=== PATIENT | female | born 1975 ===

== ENCOUNTER 2020-07-06 10:32 | Outpatient (REF) | payer OTHER, SELFPAY ==
[2020-07-06 13:44] LABS: MANUAL DIFF FLAG NO
[2020-07-06 13:55] LABS: Basophils Percent Auto 0.6 % (0-2); Eosinophils Absolute Auto 0.2 X10*3/uL (0.0-0.4); Eosinophils Percent Auto 2.6 % (0-4); Hematocrit 37.7 % (37-47); Hemoglobin 11.9 g/dl (12.0-16.0); Imm Gran Abs Auto 0.02 X10*3/uL (0.00-0.03); Imm Gran Pct Auto 0.3 % (0.0-0.4); Lymphocytes Absolute Auto 1.7 X10*3/uL (1.2-4.9); Lymphocytes Percent Auto 27.6 % (20-40); Mean Corpuscular HGB Conc 31.6 g/dl (31.0-35.0); Mean Corpuscular Hemoglobin 28.5 pg (27.0-33.0); Mean Corpuscular Volume 90.4 fL (80-98); Mean Platelet Volume 11.1 fL (9.4-12.3); Monocytes Absolute Auto 0.6 X10*3/uL (0.1-1.2); Monocytes Percent Auto 9.2 % (2-11); Neutrophils Absolute Auto 3.7 X10*3/uL (2.0-8.3); Neutrophils Percent Auto 59.7 % (45-73); Platelet Count 291 X10*3/uL (160-400); Red Blood Count 4.17 X10*6/uL (4.20-5.50); Red Cell Distribution Width 12.5 % (11.0-16.0); White Blood Count 6.2 X10*3/uL (4.8-10.8)
[2020-07-06 14:35] LABS: Alanine Aminotransferase 12 U/L (0-31); Albumin Level 4.2 g/dL (3.5-5.0); Alkaline Phosphatase 75 U/L (39-117); Anion Gap 11 (12-20); Aspartate Amino Transferase 14 U/L (5-31); Bilirubin Total 0.8 mg/dL (0.0-1.0); Blood Urea Nitrogen 15 mg/dL (9-16); Calcium 8.8 mg/dL (8.4-10.2); Carbon Dioxide 27 mmol/L (22-29); Chloride 104 mmol/L (96-108); Cholesterol 223 mg/dL; Estimated Glomerular Filt Rate > 60; Glucose Random 89 mg/dL (60-115); HDL Cholesterol 40 mg/dL; LDL Cholesterol Calculated 147 mg/dl; Potassium 4.3 mmol/l (3.3-5.1); Sodium 138 mmol/L (135-145); Total Protein 7.4 g/dL (6.5-8.0); Triglycerides 183 mg/dL
[2020-07-06 14:56] LABS: Thyroid Stimulating Hormone 0.48 mIU/mL (0.32-4.0)
== END 2020-07-06 10:33 | disposition home or self-care (01) ==
LOC: HO.10HDL 10:32
PROVIDERS: Visit Provider Internal Medicine Endocrinology, Diabetes & Metabolism
DX: I10 Essential (primary) hypertension (principal); E03.9 Hypothyroidism, unspecified
CPT/HCPCS: 36415; 80053; 80061; 84439; 84443; 85025

== ENCOUNTER → 2020-08-10 14:47 | Outpatient (BNVA) | payer OTHER, SELFPAY | PROVIDERS: PCP Internal Medicine; Visit Provider Internal Medicine Endocrinology, Diabetes & Metabolism | DX: Z76.89 Persons encountering health services in other specified circumstances (principal) ==

== ENCOUNTER 2020-09-04 14:49 | Outpatient (REF) | payer OTHER, SELFPAY ==
--- NOTE | 2020-09-04 14:52 | MM_ITS ---
EXAMINATION: MM SCREENING DIGITAL BREAST TOMOSYNTHESIS, BILATERAL CLINICAL INFORMATION: Screening. Asymptomatic. The lifetime risk of breast cancer based on the Tyrer-Cuzick Model is 14%. COMPARISON: Mammography: 03/03/2019, 11/10/2017, 09/03/2016 TECHNIQUE: Digital breast tomosynthesis is performed in both the craniocaudal and mediolateral oblique views along with computer-aided detection (CAD). Synthesized 2D images are generated from the tomosynthesis. FINDINGS: There are scattered areas of fibroglandular density (ACR BI-RADS breast composition Category b). There are no significant masses, abnormal calcifications, or other abnormalities. The axilla and skin contours are unremarkable. No significant changes. MM/MM tomosynthesis screening BI IMPRESSION: No mammographic evidence of malignancy. ASSESSMENT: BI-RADS 1: Negative RECOMMENDATION: Routine annual mammography screening. This patient's information was entered into a reminder system with a target due date for their next mammogram.
== END 2020-09-04 14:50 | disposition home or self-care (01) ==
LOC: HO.MAMMO 14:49
PROVIDERS: Visit Provider Internal Medicine
DX: Z12.31 Encounter for screening mammogram for malignant neoplasm of breast (principal)
CPT/HCPCS: 77063; 77067

== ENCOUNTER 2021-02-11 07:34 | Outpatient (REF) | payer OTHER, SELFPAY ==
[2021-02-11 11:01] LABS: Free T4 (Free Thyroxine) 0.95 ng/dL (0.71-1.85); Thyroid Stimulating Hormone 3.11 uIU/mL (0.32-4.0)
== END 2021-02-11 07:35 | disposition home or self-care (01) ==
LOC: HO.10HDL 07:34
PROVIDERS: Visit Provider Internal Medicine Endocrinology, Diabetes & Metabolism
DX: E55.9 Vitamin D deficiency, unspecified (principal)
CPT/HCPCS: 36415; 84439; 84443

== ENCOUNTER → 2021-02-12 15:38 | Outpatient (BNVA) | payer OTHER, SELFPAY | PROVIDERS: PCP Internal Medicine; Visit Provider Internal Medicine Endocrinology, Diabetes & Metabolism ==

== ENCOUNTER 2021-04-30 10:16 | Outpatient (REF) | payer OTHER, SELFPAY ==
[2021-04-30 13:12] LABS: MANUAL DIFF FLAG NO
[2021-04-30 13:17] LABS: Basophils Percent Auto 0.7 % (0-2); Eosinophils Absolute Auto 0.1 X10*3/uL (0.0-0.4); Eosinophils Percent Auto 2.6 % (0-4); Hematocrit 38.7 % (37-47); Hemoglobin 12.2 g/dl (12.0-16.0); Imm Gran Abs Auto 0.02 X10*3/uL (0.00-0.03); Imm Gran Pct Auto 0.4 % (0.0-0.4); Lymphocytes Absolute Auto 1.5 X10*3/uL (1.2-4.9); Lymphocytes Percent Auto 28.7 % (20-40); Mean Corpuscular HGB Conc 31.5 g/dl (31.0-35.0); Mean Corpuscular Hemoglobin 28.4 pg (27.0-33.0); Mean Corpuscular Volume 90.2 fL (80-98); Monocytes Absolute Auto 0.4 X10*3/uL (0.1-1.2); Monocytes Percent Auto 7.7 % (2-11); Neutrophils Absolute Auto 3.2 X10*3/uL (2.0-8.3); Neutrophils Percent Auto 59.9 % (45-73); Platelet Count 272 X10*3/uL (160-400); Red Blood Count 4.29 X10*6/uL (4.20-5.50); Red Cell Distribution Width 12.7 % (11.0-16.0); White Blood Count 5.3 X10*3/uL (4.8-10.8)
[2021-04-30 13:34] LABS: Alanine Aminotransferase 11 U/L (0-31); Alkaline Phosphatase 76 U/L (39-117); Anion Gap 12 (12-20); Aspartate Amino Transferase 13 U/L (5-31); Bilirubin Total 0.3 mg/dL (0.0-1.0); Blood Urea Nitrogen 16 mg/dL (9-16); Calcium 9.2 mg/dL (8.4-10.2); Carbon Dioxide 25 mmol/L (22-29); Chloride 105 mmol/L (96-108); Estimated Glomerular Filt Rate > 60; Glucose Random 97 mg/dL (60-115); Potassium 4.4 mmol/L (3.3-5.1); Sodium 138 mmol/L (135-145); Total Protein 7.3 g/dL (6.5-8.0)
[2021-04-30 13:51] LABS: Thyroid Stimulating Hormone 3.64 uIU/mL (0.32-4.0)
== END 2021-04-30 10:17 | disposition home or self-care (01) ==
LOC: HO.10HDL 10:16
PROVIDERS: Physician Assistant; Visit Provider Internal Medicine Endocrinology, Diabetes & Metabolism
DX: I49.3 Ventricular premature depolarization (principal); E55.9 Vitamin D deficiency, unspecified; E06.3 Autoimmune thyroiditis; E03.8 Other specified hypothyroidism
CPT/HCPCS: 36415; 80053; 83735; 85025

== ENCOUNTER → 2021-05-16 12:56 | Outpatient (BNVA) | payer SELFPAY | DX: Z20.822 Contact with and (suspected) exposure to COVID-19 (principal) | CPT/HCPCS: 36415; 87635 ==

== ENCOUNTER → 2021-05-20 10:21 | Outpatient (REF) | payer OTHER, SELFPAY ==
--- NOTE | 2021-05-20 10:30 | CA_ITS ---
Transthoracic Echocardiogram Patient (Last, First, Middle): Judith Dominguez, Gender: Female Date of : 1975 Age: 45 Procedure Date: 05/20/2021 Procedure Type: Transthoracic Echocardiogram Location: OP Height: 154.94 cm Weight: 67.13 kg BSA: 1.66 m2 Heart Rate: bpm BP: 118 / 80 mmHg Machine Molder: MELINDA Referring MD: Courtney RESENDIZ Judge Clerk: Shan Waggoner MD Symptoms: PVC'S Study Quality: Fair ECG Rhythm: Sinus Conclusions: - 1. Low normal LV systolic function with LVEF of 50-55% 2. Mild aortic regurgitation 3. Normal RV systolic pressure 4. No gross pericardial effusion Findings Left Ventricle Normal left ventricular cavity size. There is normal left ventricular wall thickness. The left ventricular systolic function is low normal. The visually estimated ejection fraction is between 50-55%. Spectral Doppler is indicative of a normal filling pattern. Right Ventricle Normal right ventricular cavity size and systolic function. Atria The left atrium is normal in size. Interatrial shunt cannot be excluded. The right atrium is normal in size. Aortic Valve Normal aortic valve structure and function. There is no aortic valve stenosis. There is mild aortic valve regurgitation. Mitral Valve Normal mitral valve structure and function. There is trace mitral valve regurgitation. There is no mitral valve stenosis. Pulmonic Valve The pulmonic valve was not well visualized. Tricuspid Valve Likely normal tricuspid valve structure and function. There is trace tricuspid valve regurgitation. The right ventricular systolic pressure is normal. The right ventricular systolic pressure is 21 mmHg. Normal right atrial pressure. There is no evidence of pulmonary hypertension. Great Vessels All visible segments of the aorta are normal in size. The pulmonary artery was not well visualized. Venous The inferior vena cava is normal in size and collapses greater than 50% with inspiration. Pericardium/Pleural There is no evidence of pericardial effusion. Prior Study Comparison No significant change compared to prior study dated: 09/28/2018. Measurements 2D Linear Measurements IVSd: 0.96 0.6-0.9/0.6-1.0 cm LVIDd: 5.55 3.9-5.3/4.2-5.9 cm LVIDd Index: 3.34 2.4-3.2/2.2-3.1 cm/m2 LVIDs: 4.07 2.0-3.6 cm LVPWd: 0.83 0.7-1.1 cm Ao Root: 3.00 2.1-3.5 cm LA Diam: 3.60 2.7-3.8/3.0-4.0 cm LAIDs Index: 2.17 1.5-2.3 cm/m2 LV Mass: 233.47 67-162/88-224 g LV Mass Index: 140.65 43-95/49-115 g/m2 LVOT Diam: 2.30 3.0+(-)1.3 cm 2D Systolic Function EF 4C: 54.60 >55% EF 2C: 42.90 >55% EF BiP: 50.50 >55% Mitral Valve MV Pk E: 0.70 MV PK A: 0.52 MV Decel Time: 230.00 E/A: 1.30 E'Lateral: 9.46 E'Medial: 4.79 E/E' Med: 14.60 E/E' Lat: 7.40 PHT: 68.00 MVA PHT: 3.24 Decel Burleigh: 3.03 Aortic Valve AoV Pk Miguel: 1.52 AoV Pk Grad: 9.00 AI Pk Miguel: 3.50 AI Burleigh: 1.55 LVOT LVOT Pk Miguel: 0.98 LVOT Mn Miguel: 0.60 LVOT VTI: 0.22 LVOT Pk Grad: 4.00 LVOT Mn Grad: 2.00 LVOT Diam: 2.30 LVOT Area: 4.15 Diastolic Function MV Pk E: 0.70 MV Pk A: 0.52 E/A: 1.30 E'Medial: 4.79 E/E' Med: 14.60 E' Laterial: 9.46 E/E' Lat: 7.40 Right Ventricle TAPSE (mm): 2.30 Tricuspid Valve TR Pk Miguel: 2.10 TR Pk Grad: 18.00 RA Press: 3.00 RVSP: 21.00 Great Vessels Aorta Ao Root-2D: 3.00 2.0-3.7 cm Ao Asc: 3.30 2.1-3.4 cm Updated in Other Vendor System with Status of Final Shan Waggoner MD electronically signed on 05/21/2021 8:45:15 AM with status of Final
--- NOTE | 2021-05-20 11:30 | ECG_ITS ---
Hook-up date: 2021-05-20 12:01:00 Duration: 24:50:00 Test Indications: PVC'S Medications: 80075 QRS complexes 206 Ventricular ectopics which represent <1 % of total QRS comp. 7 Supraventricular ectopics which represent <1 % of total QRS comp. * Paced QRS complexs which represent % of total QRS comp. VENTRICULAR ECTOPY 206 Isolated 0 Bigeminal Cycles 0 Couplets 0 Runs 0 Beats in Runs * Beats LONGEST at * BPM at :: -- * Beats FASTEST at * BPM at :: -- SUPRAVENTRICULAR ECTOPY 7 Isolated 0 Couplets 0 Runs 0 Beats in Runs * Beats LONGEST at * BPM at :: -- * Beats FASTEST at * BPM at :: -- HEART RATES 46 MIN at 05:45:18 2021-05-21 63 AVG 105 MAX at 05:39:15 2021-05-21 LONGEST RR 1.5040 secs at 05:45:13 2021-05-21 S-T LEVELS Channel 1 - 128 mm at 12:01:00 2021-05-20 - 128 mm at 12:01:00 2021-05-20 Channel 2 - 128 mm at 12:01:00 2021-05-20 - 128 mm at 12:01:00 2021-05-20 Channel 3 - 128 mm at 03:12:01 -- - 128 mm at 03:12:01 Underlying rhythm is sinus; Average ventricular rate 63/min; range 46-105/min; Rare PVCs and very rare PACs; No sustained arrhythmias; No patient events documented. Referred By: Courtney Parker Overread By: JEAN EMMANUEL
== END ==
LOC: HO.CARD 10:21
PROVIDERS: Visit Provider Physician Assistant
DX: I49.3 Ventricular premature depolarization (principal)
CPT/HCPCS: 93225; 93226; 93306

== ENCOUNTER 2021-10-01 08:50 | Outpatient (REF) | payer OTHER, SELFPAY ==
--- NOTE | ~2021-10-01 | MM_ITS ---
EXAMINATION: MM SCREENING DIGITAL BREAST TOMOSYNTHESIS, BILATERAL CLINICAL INFORMATION: Screening. Asymptomatic. The lifetime risk of breast cancer based on the Tyrer-Cuzick Model is 9%. COMPARISON: Mammography: 09/04/2020, 03/03/2019, 11/10/2017 TECHNIQUE: Digital breast tomosynthesis is performed in both the craniocaudal and mediolateral oblique views along with computer-aided detection (CAD). Synthesized 2D images are generated from the tomosynthesis. FINDINGS: There are scattered areas of fibroglandular density (ACR BI-RADS breast composition Category b). There are no significant masses, abnormal calcifications, or other abnormalities. MM/MM tomosynthesis screening BI IMPRESSION: No mammographic evidence of malignancy. ASSESSMENT: BI-RADS 1: Negative RECOMMENDATION: Routine annual mammography screening. This patient's information was entered into a reminder system with a target due date for their next mammogram.
== END 2021-10-01 08:51 | disposition home or self-care (01) ==
LOC: HO.MAMMO 08:50
PROVIDERS: PCP Internal Medicine; Visit Provider Internal Medicine
DX: Z12.31 Encounter for screening mammogram for malignant neoplasm of breast (principal)
CPT/HCPCS: 77063; 77067

== ENCOUNTER 2022-01-07 10:32 | Outpatient (REF) | payer OTHER, SELFPAY ==
[2022-01-07 12:30] LABS: Thyroid Stimulating Hormone 2.22 uIU/mL (0.32-4.0)
[2022-01-07 12:36] LABS: Alanine Aminotransferase 13 U/L (0-31); Albumin Level 3.8 g/dL (3.5-5.0); Alkaline Phosphatase 72 U/L (39-117); Anion Gap 13 (12-20); Aspartate Amino Transferase 16 U/L (5-31); Bilirubin Total 0.4 mg/dL (0.0-1.0); Blood Urea Nitrogen 13 mg/dL (9-16); Calcium 9.2 mg/dL (8.4-10.2); Carbon Dioxide 22 mmol/L (22-29); Chloride 105 mmol/L (96-108); Cholesterol 230 mg/dL; Estimated Glomerular Filt Rate > 60; Glucose Random 86 mg/dL (60-115); HDL Cholesterol 44 mg/dL; LDL Cholesterol Calculated 158 mg/dl; Potassium 4.4 mmol/L (3.3-5.1); Sodium 136 mmol/L (135-145); Triglycerides 144 mg/dL
== END 2022-01-07 10:33 | disposition home or self-care (01) ==
LOC: HO.LAB 10:32
PROVIDERS: PCP Internal Medicine; Visit Provider Physician Assistant
DX: I10 Essential (primary) hypertension (principal)
CPT/HCPCS: 36415; 80053; 80061; 84443

== ENCOUNTER → 2022-07-02 13:50 | Outpatient (REF) | payer OTHER, SELFPAY ==
--- NOTE | 2022-07-02 | HM_ITS ---
* Total monitoring time 3 days. * Underlying rhythm is sinus. Average rate 65/Min. Range 49 to 106/Min. * Frequent ventricular ectopy. [place] of 2.7%. Some couplets, bigeminy, trigeminy. 2 morphologies. Short runs noted, longest 5 beats. * Very rare supraventricular ectopy with minimal burden. * No significant pauses or AV blocks. * No patient diary. MTDD
--- NOTE | 2022-07-02 13:55 | CA_ITS ---
Transthoracic Echocardiogram Patient (Last, First, Middle): Judith Dominguez, Gender: Female Date of : 1975 Age: 46 Procedure Date: 07/02/2022 Procedure Type: Transthoracic Echocardiogram Location: OP Height: 157.48 cm Weight: 63.5 kg BSA: 1.64 m2 Heart Rate: bpm BP: 118 / 60 mmHg Skill Training Program Coordinator: Referring MD: Courtney RESENDIZ Symptoms: R00.2 PALPITATIONS, I49.3 PVC, R06.02 SOB Study Quality: Good ECG Rhythm: Sinus Conclusions: - The left ventricular systolic function is mildly decreased. The calculated ejection fraction is 50% by biplane method. - There is mild aortic valve regurgitation. Findings Left Ventricle Normal left ventricular cavity size. There is normal left ventricular wall thickness. The left ventricular systolic function is mildly decreased. The calculated ejection fraction is 50% by biplane method. There is mild global hypokinesis. Diastolic function is normal for age. Contractility improves towards apex. Right Ventricle Normal right ventricular cavity size and systolic function. Atria Both atria are normal in size. Aortic Valve There is a normal trileaflet aortic valve. There is no aortic valve stenosis. There is mild aortic valve regurgitation. Mitral Valve The mitral valve appears normal. There is trace mitral valve regurgitation. There is no mitral valve stenosis. Pulmonic Valve The pulmonic valve is likely normal. Tricuspid Valve Normal tricuspid valve structure. There is trace tricuspid valve regurgitation. There is no evidence of pulmonary hypertension. Great Vessels The asc aorta is normal in size. Venous The inferior vena cava is normal in size and collapses greater than 50% with inspiration. Pericardium/Pleural There is no evidence of pericardial effusion. Prior Study Comparison No significant change compared to prior study dated: 05/20/2021. Measurements 2D Linear Measurements IVSd: 1.06 0.6-0.9/0.6-1.0 cm LVIDd: 4.98 3.9-5.3/4.2-5.9 cm LVIDd Index: 3.04 2.4-3.2/2.2-3.1 cm/m2 LVIDs: 3.70 2.0-3.6 cm LVPWd: 1.17 0.7-1.1 cm Ao Root: 3.30 2.1-3.5 cm LA Diam: 3.70 2.7-3.8/3.0-4.0 cm LAIDs Index: 2.26 1.5-2.3 cm/m2 LV Mass: 261.35 67-162/88-224 g LV Mass Index: 159.36 43-95/49-115 g/m2 LVOT Diam: 2.40 3.0+(-)1.3 cm 2D Systolic Function EF 4C: 48.90 >55% EF 2C: 50.30 >55% EF BiP: 50.40 >55% Mitral Valve MV Pk E: 0.69 MV PK A: 0.75 MV Decel Time: 338.00 E/A: 0.90 E'Lateral: 7.29 E'Medial: 4.79 E/E' Med: 14.40 E/E' Lat: 9.50 PHT: 99.00 MVA PHT: 2.22 Decel Beltrami: 2.04 Aortic Valve AoV Pk Miguel: 1.62 AoV Mn Miguel: 1.09 AoV VTI: 0.33 AoV Pk Grad: 10.00 Aov Mn Grad: 6.00 CECILIA Cont.VTI: 2.28 LVOT LVOT Pk Miguel: 0.88 LVOT Mn Miguel: 0.55 LVOT VTI: 0.17 LVOT Pk Grad: 3.00 LVOT Mn Grad: 2.00 LVOT Diam: 2.40 LVOT Area: 4.52 Diastolic Function MV Pk E: 0.69 MV Pk A: 0.75 E/A: 0.90 E'Medial: 4.79 E/E' Med: 14.40 E' Laterial: 7.29 E/E' Lat: 9.50 Right Ventricle TAPSE (mm): 23.00 TVS' Miguel: 10.00 Tricuspid Valve TR Pk Miguel: 1.77 TR Pk Grad: 13.00 RA Press: 3.00 RVSP: 16.00 Great Vessels Aorta Ao Root-2D: 3.30 2.0-3.7 cm Ao Asc: 3.00 2.1-3.4 cm Pulmonary Valve PV Pk Miguel: 1.22 Peak PV Grad: 6.00 Updated in Other Vendor System with Status of Final Alvino Rodarte MD electronically signed on 07/03/2022 11:30:13 AM with status of Final
== END ==
LOC: HO.CARD 13:50
PROVIDERS: PCP Internal Medicine; Visit Provider Physician Assistant
DX: R00.2 Palpitations (principal); I49.3 Ventricular premature depolarization; R06.2 Wheezing
CPT/HCPCS: 93242; 93306

== ENCOUNTER 2022-10-07 08:06 | Outpatient (REF) | payer OTHER, SELFPAY ==
--- NOTE | ~2022-10-07 | MM_ITS ---
EXAMINATION: MM SCREENING DIGITAL BREAST TOMOSYNTHESIS, BILATERAL CLINICAL INFORMATION: Screening. Asymptomatic. The lifetime risk of breast cancer based on the Tyrer-Cuzick Model is 14%. COMPARISON: Mammography: 10/01/2021, 09/04/2020, 03/03/2019 TECHNIQUE: Digital breast tomosynthesis is performed in both the craniocaudal and mediolateral oblique views along with computer-aided detection (CAD). Synthesized 2D images are generated from the tomosynthesis. FINDINGS: There are scattered areas of fibroglandular density (ACR BI-RADS breast composition Category b). There are no significant masses, abnormal calcifications, or other abnormalities. Parenchymal pattern is similar to prior studies. There is no developing density or architectural abnormality. The axilla and skin contours are unremarkable. No significant changes. MM/MM tomosynthesis screening BI IMPRESSION: No mammographic evidence of malignancy. ASSESSMENT: BI-RADS 1: Negative RECOMMENDATION: Routine annual mammography screening. This patient's information was entered into a reminder system with a target due date for their next mammogram.
== END 2022-10-07 08:07 | disposition home or self-care (01) ==
LOC: HO.MAMMO 08:06
PROVIDERS: PCP Internal Medicine; Visit Provider Internal Medicine
DX: Z12.31 Encounter for screening mammogram for malignant neoplasm of breast (principal)
CPT/HCPCS: 77063; 77067

== ENCOUNTER 2022-12-31 08:34 | Outpatient (REF) | payer OTHER, SELFPAY ==
[2022-12-31 11:51] LABS: Alanine Aminotransferase 10 U/L (0-31); Albumin Level 3.8 g/dL (3.5-5.0); Alkaline Phosphatase 70 U/L (39-117); Anion Gap 11 (12-20); Aspartate Amino Transferase 12 U/L (5-31); Bilirubin Total 0.6 mg/dL (0.0-1.0); Blood Urea Nitrogen 14 mg/dL (9-16); Calcium 8.8 mg/dL (8.4-10.2); Carbon Dioxide 23 mmol/L (22-29); Chloride 108 mmol/L (96-108); Cholesterol 205 mg/dL; Estimated Glomerular Filt Rate > 60; Glucose Fasting 98 mg/dL (60-99); HDL Cholesterol 40 mg/dL; LDL Cholesterol Calculated 136 mg/dl; Potassium 4.3 mmol/L (3.3-5.1); Sodium 138 mmol/L (135-145); Total Protein 6.7 g/dL (6.5-8.0); Triglycerides 148 mg/dL
[2022-12-31 12:10] LABS: Thyroid Stimulating Hormone 3.57 uIU/mL (0.32-4.0)
== END 2022-12-31 08:35 | disposition home or self-care (01) ==
LOC: HO.10HDL 08:34
PROVIDERS: Visit Provider Internal Medicine
DX: I10 Essential (primary) hypertension (principal)
CPT/HCPCS: 36415; 80053; 80061; 84443

== ENCOUNTER 2023-06-24 12:42 | Outpatient (REF) | payer OTHER, SELFPAY ==
[2023-06-24 14:30] LABS: Alanine Aminotransferase 11 U/L (0-31); Albumin Level 3.9 g/dL (3.5-5.0); Alkaline Phosphatase 71 U/L (39-117); Anion Gap 11 (12-20); Aspartate Amino Transferase 16 U/L (5-31); Bilirubin Total 0.5 mg/dL (0.0-1.0); Blood Urea Nitrogen 8 mg/dL (9-16); Calcium 8.8 mg/dL (8.4-10.2); Carbon Dioxide 24 mmol/L (22-29); Chloride 106 mmol/L (96-108); Cholesterol 224 mg/dL (<200); Estimated Glomerular Filt Rate > 60; Glucose Random 95 mg/dL (60-115); HDL Cholesterol 40 mg/dL (>40); LDL Cholesterol Calculated 146 mg/dL (<100); Potassium 3.7 mmol/L (3.3-5.1); Sodium 137 mmol/L (135-145); Total Protein 7.3 g/dL (6.5-8.0); Triglycerides 194 mg/dL (<150)
[2023-06-24 14:47] LABS: Free T4 (Free Thyroxine) 1.02 ng/dL (0.71-1.85); Thyroid Stimulating Hormone 3.86 uIU/mL (0.32-4.0)
== END 2023-06-24 12:43 | disposition home or self-care (01) ==
LOC: HO.10HDL 12:42
PROVIDERS: Visit Provider Physician Assistant
DX: I10 Essential (primary) hypertension (principal); E03.9 Hypothyroidism, unspecified
CPT/HCPCS: 36415; 80053; 80061; 84439; 84443

== ENCOUNTER → 2023-10-13 08:00 | Outpatient (BNV) | payer OTHER, SELFPAY | PROVIDERS: PCP Internal Medicine; Visit Provider Radiology Diagnostic Radiology | DX: Z12.31 Encounter for screening mammogram for malignant neoplasm of breast (principal) | CPT/HCPCS: 77063; 77067 ==

== ENCOUNTER 2023-10-13 08:06 | Outpatient (REF) | payer OTHER, SELFPAY | END 2023-10-13 08:07 | disposition home or self-care (01) | LOC: HO.MAMMO 08:06 | PROVIDERS: PCP Internal Medicine; Visit Provider Internal Medicine | DX: Z12.31 Encounter for screening mammogram for malignant neoplasm of breast (principal) | CPT/HCPCS: 77063; 77067 ==

== ENCOUNTER → 2023-11-18 09:51 | Outpatient (REF) | payer OTHER, SELFPAY | LOC: HO.SL 09:51 | PROVIDERS: PCP Internal Medicine; Visit Provider Physician Assistant | DX: R06.83 Snoring (principal); R53.83 Other fatigue | CPT/HCPCS: 95806 ==

== ENCOUNTER → 2023-11-18 19:00 | Outpatient (BNV) | payer OTHER, SELFPAY | PROVIDERS: PCP Internal Medicine; Visit Provider Internal Medicine | DX: R06.83 Snoring (principal) | CPT/HCPCS: 95806 ==

== ENCOUNTER → 2023-11-30 08:35 | Outpatient (REF) | payer OTHER, SELFPAY ==
--- NOTE | 2023-11-30 08:38 | HM_ITS ---
Conclusion: 1. Patient was monitored for total period of 2 days 2. Baseline was normal sinus rhythm with average heart of 65 beats per minute 3. No significant pauses noted 4. Frequent isolated PVCs noted with total burden of 4.2% with 3 triplets at 153 beats per minute 5. No patient reported events MTDD
== END ==
LOC: HO.CARD 08:35
PROVIDERS: PCP Internal Medicine; Visit Provider Physician Assistant
DX: I42.9 Cardiomyopathy, unspecified (principal); R53.83 Other fatigue; I49.3 Ventricular premature depolarization
CPT/HCPCS: 93225

== ENCOUNTER → 2023-11-30 08:38 | Outpatient (BNV) | payer OTHER, SELFPAY | PROVIDERS: PCP Internal Medicine; Visit Provider Internal Medicine Cardiovascular Disease | DX: I49.3 Ventricular premature depolarization (principal) | CPT/HCPCS: 93227 ==

== ENCOUNTER → 2024-02-10 08:12 | Outpatient (REF) | payer OTHER, SELFPAY ==
--- NOTE | ~2024-02-10 | NM_ITS ---
Exercise Myocardial perfusion study Indication: Chest pain and shortness of breath to evaluate for myocardial ischemia Technique: The patient was brought in for an exercise perfusion study on 02/10/2024. Patient performed exercise as per Prasanna protocol and was injected 25 mCi of sestamibi was given intravenously one target HR was achieved. Images were obtained using the SPECT gamma camera interlaced with the gating device. Images were obtained in supine position. Resting perfusion study was performed on 02/11/2024. Patient was administered 25 mCi of sestamibi intravenously at rest. Images were then obtained in supine position. Images obtained with and without CT attenuation. Total DLP 81 mGy-cm. Images were processed with the software and compared side to side in short axis, horizontal long axis and vertical long axis views. Findings: The stress perfusion study showed non attenuated images show mildly reduced uptake in the inferior and lateral wall of the LV myocardium.. Attenuation corrected images show normal uptake of radiotracer in all segments of LV myocardium. The gated study shows normal LV systolic function with calculated LVEF of 50%. LV cavity is mildly dilated in size. The gated study shows normal systolic wall thickening and contraction of all segments. There is no transient ischemic dilation. Resting study shows attenuated corrected images show no significant change in perfusion pattern. Gating at rest reveals normal systolic wall motion with ejection fraction at 43%. The findings are consistent with likely normal myocardial perfusion. NM/NM daily perf SPECT rest & str Impression: 1. Normal myocardial perfusion 2. Gated LVEF is 50% 3. Transient ischemic dilatation not present but LV cavity is dilated EKG is negative for ischemia
--- NOTE | 2024-02-10 08:16 | CA_ITS ---
Transthoracic Echocardiogram Patient (Last, First, Middle): Judith Dominguez, Gender: Female Date of : 1975 Age: 48 Procedure Date: 02/10/2024 Procedure Type: Transthoracic Echocardiogram Location: OP Height: 154.94 cm Weight: 66.23 kg BSA: 1.65 m2 Heart Rate: bpm BP: 136 / 74 mmHg Corporate Giving Manager: TO Referring MD: Courtney RESENDIZ Floriculture Teacher: Shan Waggoner MD Symptoms: I49.3 PVCS R00.2 PALPITATIONS R53.83 FATIGUE R06.83 SNORING R07.89 CHEST P Study Quality: Fair/Contrast ECG Rhythm: Sinus Conclusions: - 1. Upper limits of normal left ventricular size with mild-to moderate LV systolic dysfunction with LVEF of 40-45% with impaired relaxation filling pattern 2. Mildly dilated left atrium 3. Mild aortic regurgitation 4. Normal RV systolic pressure 5. No gross pericardial effusion Findings Procedure Information Contrast agent, definity, is being given per protocol without apparent complications. Left Ventricle Normal left ventricular cavity size. There is normal left ventricular wall thickness. The left ventricular systolic function is mild to moderately decreased. The visually estimated ejection fraction is between 40-45%. Spectral Doppler is indicative of an impaired relaxation filling pattern. E/E prime ratio is between 8 and 15 consistent with indeterminate filling pressures. Right Ventricle Normal right ventricular cavity size and systolic function. Atria The left atrium is mildly dilated. Interatrial shunt cannot be excluded. The right atrium is likely dilated. Aortic Valve There is mild calcification of the aortic valve. There is mild thickening of the aortic valve. There is no aortic valve stenosis. There is mild aortic valve regurgitation. Mitral Valve There is mild anterior and posterior mitral leaflet thickening. There is mild mitral valve regurgitation. There is no mitral valve stenosis. Pulmonic Valve The pulmonic valve is likely normal. There is trace to mild pulmonic valve regurgitation. Tricuspid Valve Likely normal tricuspid valve structure and function. There is mild tricuspid valve regurgitation. The right ventricular systolic pressure is normal. The right ventricular systolic pressure is 20 mmHg. Normal right atrial pressure. There is no evidence of pulmonary hypertension. Great Vessels The pulmonary artery was not well visualized. There is no dilatation of the ascending aorta measuring 3.40 cm. Small plaque is seen in the sino tubular ridge. Venous The inferior vena cava is normal in size and collapses greater than 50% with inspiration. Pericardium/Pleural There is no evidence of pericardial effusion. Prior Study Comparison Changes noted compared to prior study dated: 07/02/2022. LV systolic function is marginally decreased Measurements 2D Linear Measurements IVSd: 0.99 0.6-0.9/0.6-1.0 cm LVIDd: 5.49 3.9-5.3/4.2-5.9 cm LVIDd Index: 3.33 2.4-3.2/2.2-3.1 cm/m2 LVIDs: 3.89 2.0-3.6 cm LVPWd: 0.85 0.7-1.1 cm LA Diam: 3.90 2.7-3.8/3.0-4.0 cm LAIDs Index: 2.36 1.5-2.3 cm/m2 LV Mass: 237.83 67-162/88-224 g LV Mass Index: 144.14 43-95/49-115 g/m2 LVOT Diam: 2.10 3.0+(-)1.3 cm 2D Systolic Function EF 4C: 39.90 >55% EF 2C: 49.00 >55% EF BiP: 42.30 >55% Mitral Valve MV Pk E: 0.79 MV PK A: 0.58 MV Decel Time: 314.00 E/A: 1.40 E'Lateral: 7.94 E'Medial: 4.35 E/E' Med: 18.20 E/E' Lat: 10.00 PHT: 92.00 MVA PHT: 2.39 Decel Kidder: 2.52 Aortic Valve AoV Pk Miguel: 1.54 AoV Mn Miguel: 1.09 AoV VTI: 0.36 AoV Pk Grad: 9.00 Aov Mn Grad: 5.00 CECILIA Cont.VTI: 1.97 AI Pk Miguel: 3.71 AI Kidder: 1.37 LVOT LVOT Pk Miguel: 0.85 LVOT Mn Miguel: 0.63 LVOT VTI: 0.21 LVOT Pk Grad: 3.00 LVOT Mn Grad: 2.00 LVOT Diam: 2.10 LVOT Area: 3.46 Diastolic Function MV Pk E: 0.79 MV Pk A: 0.58 E/A: 1.40 E'Medial: 4.35 E/E' Med: 18.20 E' Laterial: 7.94 E/E' Lat: 10.00 Right Ventricle TAPSE (mm): 26.10 TVS' Miguel: 11.20 Tricuspid Valve TR Pk Miguel: 2.07 TR Pk Grad: 17.00 RA Press: 3.00 RVSP: 20.00 Great Vessels Aorta Sinus of Valsalva: 3.77 2.0-3.[address] [place]: 2.67 1.7-3.4 cm Ao Asc: 3.40 2.1-3.4 cm Ao Arch: 2.30 Updated in Other Vendor System with Status of Final Shan Waggoner MD electronically signed on 02/10/2024 3:49:25 PM with status of Final
--- NOTE | 2024-02-10 08:18 | CA_ITS ---
Acquisition Time: 2024-02-10 09:31:07 Total Exercise Time: 00:05:35 Test Indications: Abnormal ECG CP Medications: LEVOTHYROXINE SERTRALINE METOPROLOL LORATADINE Protocol: SAVANNA Max HR: 148 BPM 85% of Pred: 174 BPM Max BP: 180/080 mmHG Max Work Load: 7.0 METS Exercise stress test exercise 5 min 35 sec of Savanna protocol achieving 85% MPHR, with mild SOB, no chest discomfort, with isolated PVCs, ventricular bigeminy, ventricular cupets and triplet, with normotensive response to exericse, without EKG chnanges for ischemia. Nuclear images pending. Test reviewed with Dr. Gallegos. Referred By: Courtney Parker Overread By: Suzie Mitchell
== END ==
LOC: HO.CARD 08:12
PROVIDERS: PCP Internal Medicine; Visit Provider Physician Assistant
DX: I49.3 Ventricular premature depolarization (principal); R00.2 Palpitations
CPT/HCPCS: 78452; 93017; 93306; A9500; Q9957

== ENCOUNTER → 2024-02-10 08:16 | Outpatient (BNV) | payer OTHER, SELFPAY | PROVIDERS: PCP Internal Medicine; Visit Provider Internal Medicine Cardiovascular Disease | DX: I35.1 Nonrheumatic aortic (valve) insufficiency (principal); I34.0 Nonrheumatic mitral (valve) insufficiency; I36.1 Nonrheumatic tricuspid (valve) insufficiency | CPT/HCPCS: 78452; 93016; 93018; 93320; 93325; 93350; 93352 ==

== ENCOUNTER 2024-07-20 08:15 | Outpatient (REF) | payer OTHER, SELFPAY ==
[2024-07-20 12:17] LABS: TSH reflex Free T4 1.96 uIU/mL (0.32-4.0)
== END 2024-07-20 08:16 | disposition home or self-care (01) ==
LOC: HO.HMGCLDS 08:15
PROVIDERS: PCP Internal Medicine; Visit Provider Internal Medicine
DX: E03.9 Hypothyroidism, unspecified (principal)
CPT/HCPCS: 36415; 84443

== ENCOUNTER 2024-10-18 08:14 | Outpatient (REF) | payer OTHER, SELFPAY ==
--- OUTSIDE RECORDS SUMMARY | 2024-10-18 08:30 | XMS_ITS | Clinical Summary ---
Author Organization [facility] it Address [address] [place] [address] Care Team Providers Care Paper Finisher Name Role Phone Irma Henderson MD Primary Care Provider [phone] Allergies Active Allergy Reactions Criticality Noted Date Comments Other 07/26/2015 Seasonal Allergies Watery eye's , runny nose Medications Medication Sig Dispensed Refills Start Date End Date Status levothyroxine (SYNTHROID, LEVOTHROID) 88 mcg tablet Take 1 tablet (88 mcg total) by mouth 1 (one) time each day. 07/20/2024 Active metoprolol succinate (TOPROL-XL) 25 mg 24 hr tablet Take 1 tablet (25 mg total) by mouth 1 (one) time each day. 05/26/2024 Active loratadine (CLARITIN) 10 mg tablet Take 1 tablet (10 mg total) by mouth 1 (one) time each day. 03/30/2023 Active sertraline (ZOLOFT) 50 mg tablet TAKE 1 TABLET BY MOUTH DAILY. 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 PVC's (premature ventricular contractions) 06/11 Hypothyroidism 01/19/2013 Overview (09/05/2024): Dr umang flores.pt states also worked up for secondary causes Immunizations Name Administration Dates Next Due Influenza Quadravalent, MDCK , 0.5ml, preservative free (Flucelvax) 6mo and older 10/14/2021 Influenza Quadravalent, MDCK , 0.5ml, with preservative (Flucelvax) 6mo and older 06/19/2020 Tdap Tetanus diptheria acell ular pertussis (Boostrix; Adacel) 7yo and older 03/30/2023,03/16/2013 Surgical History Surgery Date Site/Laterality Comments TUBAL LIGATION PROCEDURE: HISTORICAL TUBAL LIGATION Medical History Medical History Date Comments PVC (premature ventricular contraction) DX:PVC (premature ventricular contraction) Family history of breast cancer DX:Family history of breast cancer; COMMENT: BRCA neg Hypothyroid DX:Hypothyroid Abnormal Pap smear of cervix 07/2020 DX: Abnormal Pap smear of cervix; COMMENT: LGSIL Family History Medical History Relation Name Comments Breast cancer Aunt 1 -sister of #17 -paternal aunt Breast cancer Aunt 2 paternal aunt father's sister Hyperlipidemia Brother 1 Hypertension Brother 1 Hyperlipidemia Brother 2 Hypertension Brother 2 Diabetes Father Hyperlipidemia Father Hypertension Father alive in his 80 s in 2013 Other: Other Maternal Grandfather ? cause - in his 90s Other: Other Maternal Grandmother ? cause Diabetes Mother at 76 Heart failure Mother Hyperlipidemia Mother Hypertension Mother Other: cancer,other Other paternal first cousin- Other: Other Paternal Grandfather Other: Other Paternal Grandmother -9 0 Breast cancer Sister half sister, p aternal Thyroid disease Sister Relation Name Status Comments Aunt 1 Aunt 2 Brother 1 Alive 5, Brother 2 Alive Daughter 1 Alive Daughter 2 Alive Father Alive Maternal Grandfather Maternal Grandmother Mother Other Paternal Grandfather Paternal Grandmother Sister Alive 3, Son Alive Social History Tobacco Use Types Packs/Day Years Used Date Smoking Tobacco: Never Smokeless Tobacco: Never Alcohol Use Standard Drinks/Week Comments No 0 (1 standard drink = 0.6 oz pur e alcohol) Sex and Gender Information Value Date Recorded Sex Assigned at Not on file Gender Identity Not on file Sexual Orientation Not on file Obstetrics History Last Filed Vital Signs Vital Sign Reading Time Taken Comments Blood Pressure 168/98 06/14/2024 2:33 PM EDT Sit ting R Arm Pulse 61 06/14/2024 2:33 PM EDT Temperature - - Respiratory Rate - - Oxygen Saturation - - Inhaled Oxygen Concentration - - Weight 65.3 kg (144 lb) 06/14/2024 2:33 PM EDT Height 154.9 cm (5' 1 ) 06/14/2024 2:33 PM EDT Body Mass Index 27.21 06/14/2024 2:33 PM EDT Plan of Treatment Upcoming Encounters Date Type Department Care Team (Late st Contact Info) Description 01/04/2025 11:00 AM EDT Office Visit Obstetrics and Gynecology - [address] [address] Blanca Bruner, [address] [address] 01/26/2025 2:30 PM EDT Office Visit Adult Medicine [address] [address] Cheri Vazquez PA [address] [place] [id number] Health Maintenance Due Date Last Done Comments Breast Cancer Screening 1977 Hepatitis B Vaccines (1 of 3 - 19+ 3-dose series) 1996 Colorectal Cancer Screening: Colonoscopy 08/24/2022 Depression Screening 08/24/2022 Hepatitis C Screening 08/24/2022 Social Influencers of Health Screening 08/24/2022 Hypertension/CHF/CAD Annual BMP Blood Test 08/31/2022 COVID-19 Vaccine (2023-2 5 season) 2024 06/28/2021, 10/06/2020, 09/15/2020 Influenza Vaccine (#1) 2024 2, 06/19/2020 Cervical Cancer Screening: HPV 05/05/2027 05/05/2022 Cholesterol Screening (Lipid Panel) 06/24/2028 06/24/2023 DTaP,Tdap,and Td Vaccines (3 - Td or Tdap) 03/30/2033 03/30/2023, 03/16/2013 HIV Screening Completed 04/27/2024 HIB Vaccines Aged Out No longer eligi ble based on patient's age to complete this topic HPV Vaccines Aged Out No longer eligi ble based on patient's age to complete this topic Hepatitis A Vaccines Aged Out No long er eligible based on patient's age to complete this topic IPV Vaccines Aged Out No longer eligi ble based on patient's age to complete this topic MMR Vaccines Aged Out No longer eligi ble based on patient's age to complete this topic Meningococcal ACWY Vaccine Aged Out N o longer eligible based on patient's age to complete this topic Pneumococcal Vaccine: Pediatrics (0 to 5 Years) and At-Risk Patients (6 to 64 Years) Aged Out No longer eligible b ased on patient's age to complete this topic RSV Immunization Patients Under 20 months Aged Out No longer eligible b ased on patient's age to complete this topic Varicella Vaccines Aged Out No longer eligible based on patient's age to complete this topic Procedures Procedure Name Priority Date/Time Associated Diagnosis Comments EXTERNAL CLINICAL LAB Routine 07/20/2024 9:52 AM EDT LIPID PANEL Routine 06/24/2023 HPV Routine 05/05/2022 from Last 3 Months or Most Recently Relevant to Health Maintenance Results * External clinical lab (07/20/2024 9:52 AM EDT) Historical Provider MD LAB BLOOD ORDERAB LES * Lipid panel (06/24/2023) Triglycerides 0 mg/dL Comment:No Interpretation Cholesterol 0 mg/dL Comment:No Interpretation HDL 0 mg/dL Comment:No Interpretation LDL Cholesterol 0 mg/dL Comment:No Interpretation Blood Venous blood specimen / Unknown Historical Provider MD LAB BLOOD ORDERAB LES * Cervical Cancer Screening: HPV (05/05/2022) Pathologist [facility] Cervical Cancer Screening: HPV Negative, Abstracted Historical Provider MD RHIANNON Childers from Last 3 Months or Most Recently Relevant to Health Maintenance Care Teams Paper Finisher Relationship Specialty Start Date End Date Irma Henderson MD PCP - General 03/30/23
== END 2024-10-18 08:15 | disposition home or self-care (01) ==
LOC: HO.MAMMO 08:14
PROVIDERS: PCP Internal Medicine; Visit Provider Internal Medicine
DX: Z12.31 Encounter for screening mammogram for malignant neoplasm of breast (principal)
CPT/HCPCS: 77063; 77067

== ENCOUNTER 2025-02-03 08:34 | Outpatient (REF) | payer OTHER, SELFPAY ==
--- OUTSIDE RECORDS SUMMARY | 2025-02-03 08:47 | XMS_ITS | Clinical Summary ---
Author Organization [facility] [address] [facility] Building Address [address] [place] [address] Phone Care Team Providers Care Retail Manager In Training Name Role Phone Irma Henderson MD Primary Care Provider [phone] Allergies Active Allergy Reactions Criticality Noted Date Comments Other 07/26/2015 Seasonal Allergies Watery eye's , runny nose Medications loratadine (CLARITIN) 10 mg tablet Take 1 tablet (10 mg total) by mouth 1 (one) time each day. 03/30/2023 Active sertraline (ZOLOFT) 50 mg tablet TAKE 1 TABLET BY MOUTH DAILY. 90 tablet 1 09/09/2024 Active levothyroxine (SYNTHROID, LEVOTHROID) 88 mcg tablet TAKE 1 TABLET BY MOUTH DAILY. 90 tablet 1 10/19/2024 Active metoprolol succinate (TOPROL-XL) 25 mg 24 hr tablet TAKE ONE (1) TABLET BY MOUTH EVERY DAY 90 each 1 12/29/2024 Active Active Problems Problem Noted Date Diagnosed [...] states also worked up for secondary causes Encounters Date Type Department Care Team Description 01/26/2025 2:30 PM EDT Office Visit Adult Medicine [address] [phone] Cheri Vazquez PA Routine physical examination (Primary Dx); Hypothyroidism, unspecified type; Anxiety and depression; Screen for colon cancer 12/28/2024 1:00 PM EDT Office Visit Adult [address] [address] Cheri Vazquez PA Hypothyroidism, unspecified type (Primary Dx); Anxiety and depression from Last 3 Months Immunizations Name Administration Dates Next Due Influenza Quadravalent, MDCK , 0.5ml, preservative free (Flucelvax) 6mo and older 10/14/2021 Influenza Quadravalent, MDCK , 0.5ml, with preservative (Flucelvax) 6mo and older 06/19/2020 Influenza trivalent, 0.5mL, preservative free (Fluarix; FluLaval; Fluzone) ages 6mo and older (Afluria) 3 years and older 07/28/2024 Tdap Tetanus diptheria acell ular pertussis (Boostrix; [...] Date Smoking Tobacco: Never Smokeless Tobacco: Never Tobacco Cessation:Counseling Given: Not Answered Alcohol Use Standard Drinks/Week Comments Yes 0 (1 standard drink = 0.6 oz pur e alcohol) occ Housing Instability Answer Date Recorde d Are you worried that in the next 2 months you may not have stable housing? No 01/26/2025 Food Access & Nutrition Answer Date Rec orded Do you have access to a vari ety of food including fruits and vegetables? Yes 01/26/2025 Access to Healthcare Answer Date Record ed Within the last 3 months, ho w many times did you visit the emergency department for your medical care? 0 01/26/2025 Health Literacy Answer Date Recorded How often do you need to hav e someone help you when you read instructions, pamphlets, or other written material from your doctor or pharmacy? Never 01/26/2025 Caregiver: How often do you need to have someone help you when you read instructions, pamphlets, or other written material from your doctor or pharmacy? Not on file 01/26/2025 Financial Risk Answer Date Recorded How hard is it for you to pa y for the very basics like food, housing, medical care, and air conditioning / heating? Not very hard 01/26/2025 Transportation Answer Date Recorded Has the lack of transportati on kept you from meetings, work, or from getting things needed for daily living? No Has the lack of transportati on kept you from medical appointments or from getting medications? No 01/26/2025 Social Isolation Answer Date Recorded How often do you feel lonely or isolated from th ose around you? Never 01/26/2025 Food Risk Answer Date Recorded Within the past 12 months we worried whether our food would run out before we got money to buy more. Never true 01/26/2025 Within the past 12 months th e food we bought just didn't last and we didn't have money to get more. Never true 01/26/2025 Dependent Care Answer Date Recorded Do you need help finding or paying for care for your loved ones. For example, child nutrition director or elderly care for an older adult? No 01/26/2025 Education Answer Date Recorded Do you think completing more education or training, like finishing a GED, going to college, or learning a trade, would be helpful for you? No 01/26/2025 Employment and Income Answer Date Recor ded During the last four weeks, have you been actively looking for work? No 01/26/2025 Living Situation Answer Date Recorded What is your living situation? 0 01/26/2025 Comments Unknown Sex and Gender Information Value Date Recorded Sex Assigned at Not on file Legal Sex Female 8:26 AM EST Gender Identity Not on file Sexual Orientation Not on file Obstetrics History Last Filed Vital Signs Vital Sign Reading Time Taken Comments Blood Pressure 124/76 01/26/2025 2:23 PM EDT Pulse 78 01/26/2025 2:23 PM EDT Temperature 36.4 ??C (97.5 ??F) 01/26/2025 2:23 PM ED T Respiratory Rate 14 01/26/2025 2:23 PM EDT Oxygen Saturation 98% 01/26/2025 2:23 PM EDT Inhaled Oxygen Concentration - - Weight 66.2 kg (146 lb) 01/26/2025 2:23 PM EDT Height 154.9 cm (5' 1 ) 01/26/2025 2:23 PM EDT Body Mass Index 27.59 01/26/2025 2:23 PM EDT Plan of Treatment Health Maintenance Due Date Last Done Comments Hepatitis B Vaccines (1 of 3 - 19+ 3-dose series) 1996 Colorectal Cancer Screening: Colonoscopy 08/24/2022 Hepatitis C Screening 08/24/2022 Hypertension/CHF/CAD Annual BMP Blood Test 08/31/2022 Depression Screening 01/26/2026 01/26/2025 Social Influencers of Health Screening 01/26/2026 01/26/2025 Breast Cancer Screening 10/18/2026 10/18/19 25, 10/18/2024 Cervical Cancer Screening: HPV 05/05/2027 05/05/2022 Cholesterol Screening (Lipid Panel) 06/24/2028 06/24/2023 DTaP,Tdap,and Td Vaccines (3 - Td or Tdap) 03/30/2033 03/30/2023, 03/16/2013 COVID-19 Vaccine Discontinued 06/28/2021, 10/06/2020, 09/15/2020 HIV Screening Completed 04/27/2024 Influenza Vaccine Completed 07/28/2024, 10/14/2021, 06/19/2020 HIB Vaccines Aged Out No longer eligi [...] patient's age to complete this topic Meningococcal B Vaccine Aged Out No l onger eligible based on patient's age to complete this topic Pneumococcal Vaccine: Pediatrics (0 to 5 Years) and At-Risk Patients (6 to 64 Years) Aged Out No longer eligible based on patient's age to complete this topic RSV Immunization Patients Under 20 months Aged Out No longer eligible based on patient's age to complete this topic Varicella Vaccines Aged Out No longer eligible based on patient's age to complete this topic Procedures Procedure Name Priority Date/Time Associated Diagnosis Comments MG MAMMO DIGITAL DIAGNOSTIC BILAT Routine 10/18/2024 1:23 PM EST LIPID PANEL Routine 06/24/2023 HM HPV Routine 05/05/2022 from Last 3 Months or Most Recently Relevant to Health Maintenance Results * MG Mammo Digital Diagnostic bilat (10/18/2024 1:23 PM EST) Anatomical Region Laterality Modality Breast Bilateral Mammography Historical Provider IMG BI PROCEDURES Final R esult * Lipid panel (06/24/2023) Triglycerides 0 mg/dL Comment:No Interpretation Cholesterol 0 mg/dL Comment:No Interpretation HDL 0 mg/dL Comment:No Interpretation LDL Cholesterol 0 mg/dL Comment:No Interpretation Blood Venous blood specimen / Unknown Historical Provider LAB BLOOD ORDERABLES Eli l Result * Cervical Cancer Screening: HPV (05/05/2022) Pathologist [facility] Cervical Cancer Screening: HPV Negative, Abstracted Historical Provider HEALTH MAINTENANCE Final Result from Last 3 Months or Most Recently Relevant to Health Maintenance Insurance [facility] [facility] Care Teams Retail Manager In Training Relationship Specialty Start Date End Date Irma Henderson MD [address] [place] [id number] PCP - General Internal Medicine 11/15/24
[2025-02-03 10:21] LABS: MANUAL DIFF FLAG NO
[2025-02-03 10:28] LABS: Basophils Percent Auto 0.6 % (0-2); Eosinophils Absolute Auto 0.3 X10*3/uL (0.0-0.4); Eosinophils Percent Auto 4.8 % (0-4); Hematocrit 38.3 % (37.0-47.0); Hemoglobin 12.5 g/dl (12.0-16.0); Imm Gran Abs Auto 0.02 X10*3/uL (0.00-0.03); Imm Gran Pct Auto 0.3 % (0.0-0.4); Lymphocytes Absolute Auto 1.6 X10*3/uL (1.2-4.9); Lymphocytes Percent Auto 26.3 % (20-40); Mean Corpuscular HGB Conc 32.6 g/dl (31.0-35.0); Mean Corpuscular Hemoglobin 28.7 pg (27.0-33.0); Mean Platelet Volume 11.1 fL (9.4-12.3); Monocytes Absolute Auto 0.5 X10*3/uL (0.1-1.2); Monocytes Percent Auto 7.3 % (2-11); Neutrophils Absolute Auto 3.8 x10*3/uL (2.0-8.3); Neutrophils Percent Auto 60.7 % (45-73); Platelet Count 259 X10*3/uL (160-400); Red Blood Count 4.35 X10*6/uL (4.20-5.50); Red Cell Distribution Width 13.2 % (11.0-16.0); White Blood Count 6.2 X10*3/uL (4.8-10.8)
[2025-02-03 10:48] LABS: Estimated Average Glucose 114 mg/dL; Hemoglobin A1C 122.7095 umol/L; Hemoglobin A1c % 5.6 % (<6.0); Total Hemoglobin (HGBA1C) 3295.2087 umol/L
[2025-02-03 10:57] LABS: Alanine Aminotransferase 15 U/L (0-31); Albumin Level 3.8 g/dL (3.5-5.0); Alkaline Phosphatase 75 U/L (39-117); Anion Gap 10 (12-20); Aspartate Amino Transferase 17 U/L (5-31); Bilirubin Total 0.6 mg/dL (0.0-1.0); Blood Urea Nitrogen 13 mg/dL (9-16); Carbon Dioxide 26 mmol/L (22-29); Chloride 107 mmol/L (96-108); Cholesterol 228 mg/dL (<200); Estimated Glomerular Filt Rate > 60; Glucose Random 102 mg/dL (60-115); HDL Cholesterol 45 mg/dL (>40); LDL Cholesterol Calculated 152 mg/dL (<100); Potassium 4.1 mmol/L (3.3-5.1); Sodium 139 mmol/L (135-145); Triglycerides 159 mg/dL (<150)
[2025-02-03 11:20] LABS: Reflex LDLD? No
== END 2025-02-03 08:35 | disposition home or self-care (01) ==
LOC: HO.HMGCLDS 08:34
PROVIDERS: PCP Internal Medicine; Visit Provider Physician Assistant
DX: Z00.00 Encounter for general adult medical examination without abnormal findings (principal); Z13.0 Encounter for screening for diseases of the blood and blood-forming organs and certain disorders involving the immune mechanism
CPT/HCPCS: 36415; 80053; 80061; 83036; 85025

== ENCOUNTER 2025-02-23 08:23 | Outpatient (REF) | payer OTHER, SELFPAY ==
--- OUTSIDE RECORDS SUMMARY | 2025-02-23 08:37 | XMS_ITS | Clinical Summary ---
Author Organization [facility] [address] [facility] Building Address [address] [place] [address] Phone Care Team Providers Care Digital Learning Platforms Manager Name Role Phone Irma Henderson MD Primary Care Provider [phone] Allergies Active Allergy Reactions Criticality Noted Date [...] 2:30 PM EDT Office Visit Adult Medicine [address] [address] Cheri Vazquez PA Routine physical examination (Primary Dx); Hypothyroidism, unspecified type; Anxiety and depression; Screen for colon cancer 12/28/2024 1:00 PM EDT Office Visit Adult [address] [phone] Cheri Vazquez PA Hypothyroidism, unspecified type (Primary [...] care for your loved ones. For example, director of early childhood or elderly care for an older adult? [...] Screening 01/26/2026 01/26/2025 Breast Cancer Screening 10/18/2026 10/18/19, 10/18/2024 Cervical Cancer Screening: HPV 05/05/2027 05/05/2022 [...] Date/Time Associated Diagnosis Comments EXTERNAL CLINICAL LAB 02/03/2025 EXTERNAL CLINICAL LAB 02/03/2025 MG MAMMO DIGITAL DIAGNOSTIC BILAT Routine 10/18/2024 1:23 PM EST LIPID PANEL Routine 06/24/2023 HPV Routine 05/05/2022 from Last 3 Months or Most Recently Relevant to Health Maintenance Results * External clinical lab (02/03/2025) Only the most recent of2 resultswithin the time period is included. us Provider Elizabeth Onbase LAB BLOOD ORDERABLES Fin al Result * MG Mammo Digital Diagnostic bilat (10/18/2024 [...] Result * Cervical Cancer Screening: HPV (05/05/2022) Cervical Cancer Screening: HPV Negative, Abstracted Historical Provider HEALTH MAINTENANCE Final Result from Last 3 Months or Most Recently Relevant to Health Maintenance Insurance [place] [employer] [facility] Care Teams Digital Learning Platforms Manager Relationship Specialty Start Date End Date Irma Henderson MD [address] [place] [id number] PCP - General Internal Medicine 11/15/24
[2025-02-23 11:11] LABS: TSH reflex Free T4 0.92 uIU/mL (0.32-4.0)
[2025-02-24 06:58] LABS: Triiodothyronine T3 Free 3.2 pg/mL (2.3-4.2)
== END 2025-02-23 08:24 | disposition home or self-care (01) ==
LOC: HO.HMGCLDS 08:23
PROVIDERS: PCP Internal Medicine; Visit Provider Physician Assistant
DX: E03.9 Hypothyroidism, unspecified (principal)
CPT/HCPCS: 36415; 84443; 84481